=== PATIENT | female | born 1995 | race Caucasian/White ===

== ENCOUNTER 2017-02-09 22:32 | Emergency (ER) | payer OTHER ==
[~2017-02-09] VITALS: Ht 157.5 cm; Wt 54.4 kg
[2017-02-09 23:09] VITALS: BP 125/82
--- NOTE | 2017-02-10 00:54 | NUR ---
PT TAKEN TO BED 5
--- NOTE | 2017-02-10 00:56 | NUR ---
PA STUDENT EVALUATING PATIENT AT BEDSIDE
[2017-02-10] MEDS ORDERED: LIDOCAINE 1% 500 MG/50 ML VIAL INJ ONE (01:05)
--- NOTE | 2017-02-10 01:06 | NUR ---
Dr. Sunshine evaluating patient at bedside.
--- NOTE | 2017-02-10 01:10 | NUR ---
21Y F BIB MOM C/O OF PAIN TO LT GROIN AREA, PT HAS REDNESS AND ABSCESS FOR A WEEK NOW. PAIN IS 10/10 IN SCALE.
[2017-02-10] MEDS ORDERED: KETOROLAC 60 MG/2 ML VIAL IM ONE (01:25)
[2017-02-10 02:15] VITALS: BP 128/73
--- NOTE | 2017-02-10 02:15 | NUR ---
Patient discharged with v/s stable. Written and verbal after care instructions given and explained. Patient alert, oriented and verbalized understanding of instructions. Ambulatory with steady gait. All questions addressed prior to discharge. ID band removed. Patient advised to follow up with PMD. Rx of KEFLEX, NORCO, BACTRIM, MOTRIN given. Patient educated on indication of medication including possible reaction and side effects. Opportunity to ask questions provided and answered.
== END 2017-02-10 02:15 | disposition home or self-care (01) ==
LOC: MED 22:32
DX: L02.214 Cutaneous abscess of groin (principal); F12.90 Cannabis use, unspecified, uncomplicated
CPT/HCPCS: 10060; 96372; 99283; J1885; J2001